=== PATIENT | male | born 1955 | race Caucasian/White ===

== ENCOUNTER → 2017-09-26 | Outpatient (CLI) | payer BC, OTHER ==
[~2017-09-26] VITALS: Ht 170.2 cm; Wt 90.7 kg
[~2017-09-26] MED LIST: ASPIR-LOW81 MG PO; CENTRUM SILVER1 EAC2 PO; CO Q-10100 MG PO; IMDUR 30 MG TAB30 M1 PO; NITROGLYCERIN0.4 MG SUBLING
--- NOTE | ~2017-09-26 | CATHLAB ---
[facility] [address] [place] [address] INVASIVE PROCEDURE REPORT Name: MANNZAKIA SUMANTH Room #: REG CL Latanya#: [id number] Admission: 09/26/17 Attend Phys: Magdiel Costa Discharge: Date of : 55 Date of Service: 09/26/17 1404 Report #: [id number] THIS REPORT FOR: //name// APPROVED REPORT Patient Details Patient Status: Out-Patient Room #: The patient is a 62 year-old male Event Personnel Magdiel Hays Hat Former, Barbara Bailey RN RN, Odette Ernandez RN RN, Germania Ceja RTR, RASHI Bro, Dieter Bassett Monitor Procedures Performed Left Heart Cath w/or w/o Coronaries [id number] [facility] Indication Abnormal ECG, Positive stress test Procedure Narrative The Right Groin^ was infiltrated with 1% Lidocaine subcutaneous anesthesia. A PINNACLE 4FR Sheath #[id number] sheath was inserted into the RFA^. Coronary angiography was performed using coronary diagnostic catheters. The right coronary system was accessed and visualized with a JR4 catheter. The left coronary system was accessed and visualized with a JL4 catheter. The left ventricle was accessed and visualized with a PIGTAIL catheter. Left ventricular/Aortic Valve gradient assessed via catheter pullback. Hemostasis was obtained with manual pressure following sheath removal without any complications. There was no hematoma. Intraoperative Conscious Sedation Sedation start time: 11.23 Case end Time: 1137 Versed 2 mg Fluoro Time: 3.22 minutes Dose: 5.13 mGy Contrast Type and Amount: Omnipaque 50 ml Coronary Angiography The patient's coronary anatomy is right dominant. Diagnostic Cath [facility] [address] [address] INVASIVE PROCEDURE REPORT Name: ZAKIA MANN Room #: REG CL [facility]#: [id number] Admission: 09/26/17 Attend Phys: Magdiel Costa Discharge: Date of : 55 Date of Service: 09/26/17 1404 Report #: [id number] Left Main Normal origin very short length and almost nonexistent no high-grade lesions are noted as a bifurcating left anterior descending and left circumflex coronary artery LAD Small to moderate caliber type II vessel which courses in the anterior interventricular sulcus giving rise to septal and diagonal branches. He has mild luminal irregularities. There appears to be in the distal third and 8 region where the vessel is less than 1 mm in diameter a slight dilatation and possibly napkin ring lesion. It does not appear to slow flow of any significance Diagonal 1 Small to moderate caliber vessel which arises early from the LAD. Accordingly on the anterolateral wall free of high-grade disease Circumflex Moderate caliber vessel which is gives rise to an early bifurcating marginal branch along the lateral aspect of the left ventricle. 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 Flow does not appear to be injured. It then terminates as a bifurcating vessel in the lateral aspect of the heart. Right Coronary Large-caliber vessel of superior posterior origin is noted. It is completely occluded proximally at the site of a prior stent. No thrombus is noted in this region. There is no antegrade flow noted. R PDA Small-caliber vessel which is filled via left to right collaterals. Left Ventriculography Left Ventriculography was not performed. Hemodynamics The aortic pressure is 183/90 mmHg with a mean of 101 mmHg. The left ventricular pressure is 188/2 mmHg with a mean of mmHg. The left ventricular end diastolic pressure is 22 mmHg. Conclusion 1. Coronary artery disease single vessel with a completely occluded proximal right coronary artery stent and distal RCA well collateralized from left to right 2. Normal hemodynamics Recommendations [facility] [address] [place] [address] INVASIVE PROCEDURE REPORT Name: ZAKIA MANN Room #: [facility] [id number] Admission: 09/26/17 Attend Phys: Magdiel Costa Discharge: Date of : 55 Date of Service: 09/26/17 1404 Report #: [id number] Cardiac Risk Reduction Program [facility] [facility] <ELECTRONICALLY SIGNED> By: Magdiel Hays MD 09/26/17 1404 1404 1404 Magdiel Hays MD /INF
[2017-09-26 09:36] VITALS: BP 154/86
== END | disposition home or self-care (01) ==
LOC: CATH 07:23
DX: I25.10 Atherosclerotic heart disease of native coronary artery without angina pectoris (principal); I10 Essential (primary) hypertension; I25.2 Old myocardial infarction; M16.0 Bilateral primary osteoarthritis of hip; I73.89 Other specified peripheral vascular diseases; K21.9 Gastro-esophageal reflux disease without esophagitis; F17.210 Nicotine dependence, cigarettes, uncomplicated; Z82.49 Family history of ischemic heart disease and other diseases of the circulatory system; Z98.890 Other specified postprocedural states; Z90.49 Acquired absence of other specified parts of digestive tract; Z95.5 Presence of coronary angioplasty implant and graft; Z79.82 Long term (current) use of aspirin; Z79.899 Other long term (current) drug therapy

== ENCOUNTER → 2018-06-10 | Outpatient (CLI) | payer BC, OTHER ==
--- NOTE | ~2018-06-10 | EKG ---
[address] [address] ELECTROCARDIOGRAM REPORT Name: ZAKIA MANN Room #: REG CLI [id number] Admission: 06/10/18 Attend Phys: Physician not on staff Discharge: Date of : 55 Report #: [id number] THIS REPORT FOR: //name// [facility] Test Date: 2018-06-10 Test Time: 14:33:18 Pat Name: ZAKIA MANN Department: Room: Gender: M Photography Professor: Johnna SEPULVEDA : 1955 Requested By: Sukhi Coe Order Number: [id number] MD: Karthik Morales Measurements Intervals [place] Rate: 71 P: 7 [place]: 200 QRS: 19 QRSD: 84 T: 32 QT: 370 QTc: 403 Interpretive Statements Sinus rhythm Anteroseptal infarct, old Compared to ECG 06/04/2011 16:35:33 Myocardial infarct finding now present Electronically Signed On 06-10-2018 15:47:05 [employer] by Karthik Morales [email or web address] <ELECTRONICALLY SIGNED> By: Karthik Morales MD 06/10/18 1547 1433 143 Karthik Morales MD /SUSIE
[2018-06-10 14:32] LABS: BASOPHILS 0.7 % (0.0-2.0); EOSINOPHILS 3.6 % (0.0-3.0); HEMATOCRIT 45.1 % (42.0-52.0); HEMOGLOBIN 15.7 gm/dL (14.0-18.0); MCH 32.2 pg (26.0-34.0); MCHC 34.7 g/dL (28.0-37.0); MCV 92.8 fL (80.0-100.0); MONOCYTES 6.9 % (1.0-8.0); PLATELET COUNT 141 thou/uL (150-400); POLYS 57.8 % (36.0-66.0); RBC 4.86 mil/uL (4.50-6.00); RDW 12.7 % (10.5-14.5); WBC 6.9 thou/uL (4.0-11.0)
[2018-06-10 14:47] LABS: CALCIUM 9.1 mg/dL (8.5-10.1); POTASSIUM 4.4 mmol/L (3.5-5.1)
== END ==
LOC: LABMALL 13:51 → CV 13:51
DX: Z01.812 Encounter for preprocedural laboratory examination (principal)